=== PATIENT | female | born 1990 | race Two or more races ===

== ENCOUNTER 2018-12-06 11:07 | Emergency (ER) | payer SELFPAY ==
[~2018-12-06] VITALS: Ht 170.2 cm; Wt 70.0 kg
--- NOTE | 2018-12-06 11:36 | NUR ---
SEE TRIAGE NOTE. PT WITH TWO BITES TO TONGUE, BLEEDING CONTROLLED. PT DENIES PAIN AT THIS TIME, + "JAW STIFFNESS". PT PLACED ON HEART MONITOR, BP CUFF, PULSE OX. SEIZURE PADS TO RAILS, WARM BLANKET AND WATER PROVIDED. CALL LIGHT WITHIN REACH. EKG COMPLETED ON ARRIVAL.
[2018-12-06 11:55] LABS: BASOPHILS # (AUTO) 0.04 x10^3/uL (0-0.1); BASOPHILS % (AUTO) 0 % (0-1); EOSINOPHILS # (AUTO) 0.67 x10^3/uL (0-0.4); EOSINOPHILS % (AUTO) 7 % (1-7); LYMPHOCYTES # (AUTO) 3.15 x10^3/uL (1-3.4); LYMPHOCYTES % (AUTO) 31 % (22-44); MD NO; MEAN CORPUSCULAR HEMOGLOBIN 31.3 pg (27.0-34.8); MEAN CORPUSCULAR HGB CONC 33.1 g/dL (32.4-35.8); MEAN CORPUSCULAR VOLUME 94.8 fL (80-100); MEAN PLATELET VOLUME 7.7 fL (7.4-10.4); MONOCYTES # (AUTO) 0.67 x10^3/uL (0.2-0.8); MONOCYTES % (AUTO) 7 % (2-9); NEUTROPHILS % (AUTO) 55 % (42-75); PLATELET COUNT 328 x10^3/uL (130-400); RED BLOOD COUNT 4.67 x10^6/uL (3.82-5.3); RED CELL DISTRIBUTION WIDTH 13.1 % (9.6-15.2)
--- NOTE | 2018-12-06 11:55 | NUR ---
REPORT TO HARRIET ARCHER, TRANSFER OF CARE AT THAT TIME.
[2018-12-06 11:56] LABS: ALBUMIN 3.6 g/dL (3.4-5.0); ANION GAP 10 mmol/L (5-15); CALCIUM 8.6 mg/dL (8.5-10.1); CHLORIDE 109 mmol/L (98-107); CREATININE 1.23 mg/dL (0.55-1.02)
--- NOTE | 2018-12-06 11:57 | NUR ---
REPORT RECEIVED FROM JG ARCHER. CARE ASSUMED AT THIS TIME.
[2018-12-06 12:01] LABS: ALANINE AMINOTRANSFERASE 30 U/L (12-78); ALKALINE PHOSPHATASE 97 U/L (45-117); BILIRUBIN,TOTAL 0.4 mg/dL (0.2-1.0)
--- NOTE | 2018-12-06 12:15 | NUR ---
PT TO CT. EDUCATION PROVIDED ABOUT NEED FOR UA.
--- NOTE | 2018-12-06 13:11 | NUR ---
AT BEDSIDE, NEW ORDERS RECEIVED.
[2018-12-06 13:12] VITALS: BP 135/89
--- NOTE | 2018-12-06 13:16 | NUR ---
PT MEDICATED PER MD ORDER, SEE EMAR.
[2018-12-06] MEDS ORDERED: LEVETIRACETAM 1,500 MG in SODIUM CHLORIDE 0.9% 100 ML IV ONE (13:30)
--- NOTE | 2018-12-06 13:36 | NUR ---
Patient/Caregiver given discharge instructions and they have confirmed that they understand the instructions. Patient ambulatory with steady gait.
== END 2018-12-06 13:37 | disposition home or self-care (01) ==
LOC: EDSEX 11:07 → EDBD 11:07 → ED 11:43
DX: G40.309 Generalized idiopathic epilepsy and epileptic syndromes, not intractable, without status epilepticus (principal); N18.9 Chronic kidney disease, unspecified; F15.10 Other stimulant abuse, uncomplicated; F17.200 Nicotine dependence, unspecified, uncomplicated
CPT/HCPCS: 36415; 70450; 80053; 85025; 93005; 96374; 99284; J1953